=== PATIENT | male | born 1985 | race Caucasian/White ===

== ENCOUNTER → 2020-05-06 08:16 | Outpatient (BNVA) | payer BC, SELFPAY | PROVIDERS: Visit Provider Nurse Practitioner Family | DX: Z11.59 Encounter for screening for other viral diseases (principal) | CPT/HCPCS: 87635 ==

== ENCOUNTER 2022-01-19 09:15 | Emergency (ER) | payer SELFPAY ==
[2022-01-19 09:43] VITALS: BP 150/86; PULSE 69; RESP 26; TEMP 36.6; O2SAT 97; BMI 25.0
--- NOTE | 2022-01-19 09:51 | ED_ITS ---
HPI - Arrhythmia/Palpitations General: Chief Complaint: Arrhythmia/Palpitations Stated Complaint: high HR, high BP Time Seen by Provider: 01/19/22 09:26 Source: patient Mode of arrival: ambulatory Limitations: no limitations History of Present Illness: 36-year-old male presents emergency room complaining of rapid heart beat as well as elevated blood pressure tremors and near syncopal episode this morning while he was in the shower. Reports that when he looks down for times and looks up he gets severe dizziness. No recent head trauma no history of coronary disease no history of arrhythmias is not any prescription or [id number] medications. Denies shortness of breath fever sweats or chills. He states he has had the symptoms for the last couple of weeks. MD complaint: rapid heart beat Onset (ago): week(s) Duration: intermittent Severity: moderate Associated symptoms: Reports nausea; Deny anxiety, cough, diaphoresis, muscle cramps, paresthesias, pre-syncope, sense of impending doom, short of breath, syncope or vomiting Review of Systems Const: Reports: body aches, change in appetite, fatigue and malaise; Denies: fever(s), chills or diaphoresis ENMT: Denies: throat pain, ear or mastoid pain, nasal discharge or nasal congestion Card: Denies: chest pain, syncope or pre-syncope Resp: Denies: dyspnea, productive cough or non-productive cough GI: Reports: nausea; Denies: abdominal pain or vomiting : Denies: flank pain, difficulty urinating, dysuria, urinary frequency or urinary urgency Musc: Denies: neck pain, back pain or muscle cramps Skin/Breast: Denies: rash or pruritus Neuro: Denies: headache(s) Psych: Denies: anxiety PFS ED PFSH: Medical History (Updated 01/19/22 @ 12:04 by Vasyl Snowden DO) No significant past medical history Surgical History (Updated 01/19/22 @ 10:58 by Vasyl Snowden DO) No pertinent past surgical history Social History (Updated 01/19/22 @ 10:58 by Vasyl Snowden DO) Smoking and tobacco status: never smoked Alcohol intake: never Physical Exam Const: COMMON NORMALS: no acute distress GENERAL APPEARANCE: cooperative and comfortable ORIENTATION/CONSCIOUSNESS: Yes awake, Yes oriented to person, Yes oriented to place and Yes oriented to time HENMT: COMMON NORMALS: normocephalic, atraumatic, hearing grossly normal bilaterally, external ears normal, EAC's normal, TM's normal bilaterally and Normal nasal mucous membranes and turbinates present HEAD & SCALP: normocephalic and atraumatic NOSE: Normal nasal mucous membranes and turbinates present EXTERNAL EAR: Yes external ears normal EXTERNAL AUDITORY CANAL: EAC's normal TYMPANIC MEMBRANE: TM's normal bilaterally Eye: COMMON NORMALS: Equal, round and reactive pupils present, EOMs intact bilaterally, conjunctivae normal and no scleral icterus CONJUNCTIVA: Yes conjunctivae normal PUPIL: Yes Equal, round and reactive pupils present Neck/C-Spine: COMMON NORMALS: no JVD Lymph: LYMPHATIC: no lymphadenopathy noted and no lymphedema noted Resp: COMMON NORMALS: normal respiratory effort, No retractions, No use of accessory muscles and clear to auscultation bilaterally AUSCULTATION: clear to auscultation bilaterally Cardio: COMMON NORMALS: no JVD, regular rate, regular rhythm and No murmurs present (Cardio) RATE: regular rate RHYTHM: regular rhythm GI: COMMON NORMALS: Soft to palpation and No hepatosplenomegaly present AUSCULTATION: Yes normoactive bowel sounds PALPATION: Yes Soft to palpation, No Tenderness to palpation present (GI), No Guarding due to palpation present (GI) and Yes No hepatosplenomegaly present Extremity: COMMON NORMALS: normal to inspection, capillary refill normal, no clubbing, cyanosis or edema, no calf tenderness and no pedal edema Neuro: SENSORIUM/ORIENTATION: Yes oriented to person, Yes oriented to place and Yes oriented to time Skin: COMMON NORMALS: no rashes or lesions noted GENERAL SKIN EXAM: no rashes or lesions noted Course Vital Signs: Vital signs: Vital Signs Temperature 97.8 F 01/19/22 09:43 Pulse Rate 78 01/19/22 13:51 Respiratory Rate 20 H 01/19/22 13:51 Blood Pressure 140/96 01/19/22 13:51 Pulse Oximetry 96 01/19/22 13:51 MDM - Arrhythmia/Palpitations Medical Decision Making No significant finding during evaluation in ER. Patient has remained in normal sinus rhythm the entire time with no arrhythmias noted any significant PVCs or PACs were noted. We will discharge patient home set him up for a 48-hour Holter follow-up with primary care if worsening symptoms return. Medical Records I reviewed the patient's medical records. Lab Data I reviewed the patient's lab results. : 01/19/22 09:41 01/19/22 09:41 Radiology Impressions Chest X-Ray 01/19/22 10:50 Impression: Negative chest. Head CT 01/19/22 10:50 Impression: 1. Negative for acute intracranial hemorrhage. 2. Mild dilatation of the ventricular system without shift. Laboratory Results WBC 6.2 10^3/uL (4.0-10.0) 01/19/22 09:41 RBC 5.32 10^6/uL (4.1-5.3) H 01/19/22 09:41 Hgb 17.2 g/dL (11.7-16.6) H 01/19/22 09:41 Hct 49.4 % (42.0-52.0) 01/19/22 09:41 MCV 92.9 fl (80-94) 01/19/22 09:41 MCH 32.3 pg (28.0-34.0) 01/19/22 09:41 MCHC 34.8 g/dL (30.0-36.0) 01/19/22 09:41 RDW 11.7 % (12.1-15.1) L 01/19/22 09:41 Plt Count 188 10^3/cmm (130-400) 01/19/22 09:41 MPV 9.8 fL (7.4-10.4) 01/19/22 09:41 Neut % (Auto) 63.7 % 01/19/22 09:41 Lymph % (Auto) 18.0 % 01/19/22 09:41 [place] % (Auto) 16.0 % 01/19/22 09:41 Eos % (Auto) 1.5 % 01/19/22 09:41 Baso % (Auto) 0.5 % 01/19/22 09:41 Neut # (Auto) 3.94 10^3/uL (1.8-7.7) 01/19/22 09:41 Lymph # (Auto) 1.1 10^3/uL (0.8-4.8) 01/19/22 09:41 [place] # (Auto) 1.0 10^3/uL (0.2-0.9) H 01/19/22 09:41 Eos # (Auto) 0.1 10^3/uL (0.0-0.8) 01/19/22 09:41 Baso # (Auto) 0.0 10^3/uL (0.0-0.1) 01/19/22 09:41 Nucleated RBC % (auto) 0 % 01/19/22 09:41 Nucleated RBCs # 0.0 /100WBC 01/19/22 09:41 Sodium 139 mmol/L (136-145) 01/19/22 09:41 Potassium 3.9 mmol/L (3.5-5.1) 01/19/22 09:41 Chloride 98 mmol/L (98-107) 01/19/22 09:41 Carbon Dioxide 26 mmol/L (22-29) 01/19/22 09:41 Anion Gap 18.9 (5-19) 01/19/22 09:41 BUN 4 mg/dL (6-20) L 01/19/22 09:41 Creatinine 0.7 mg/dL (0.7-1.2) 01/19/22 09:41 GFR Calculation 129.1 mL/min (90-130) 01/19/22 09:41 Glucose 131 mg/dL (65-115) H 01/19/22 09:41 Calculated Osmolality 287 mOsm/kg (285-295) 01/19/22 09:41 Calcium 9.9 mg/dL (8.5-10.5) 01/19/22 09:41 Total Bilirubin 0.4 mg/dL (0.15-1.2) 01/19/22 09:41 AST 79 U/L (0-40) H 01/19/22 09:41 ALT 70 U/L (0-41) H 01/19/22 09:41 Alkaline Phosphatase 99 IU/L (40-130) 01/19/22 09:41 Creatine Kinase 416 U/L (39-308) H* 01/19/22 09:41 Troponin T Baseline 6 ng/L (0-15) 01/19/22 09:41 Troponin T 120 Minute 6.00 ng/L (0-15) 01/19/22 11:53 Delta Troponin T 0 ABS# (0-10) 01/19/22 11:53 Total Protein 7.9 g/dL (6.6-8.7) 01/19/22 09:41 Albumin 5.0 g/dL (3.5-5.2) 01/19/22 09:41 Globulin 2.9 g/dL (1.3-4.6) 01/19/22 09:41 TSH 1.80 uIU/mL (0.27-4.20) 01/19/22 09:41 Urine Color Yellow (Yellow) 01/19/22 11:15 Urine Appearance Clear (CLEAR) 01/19/22 11:15 Urine pH 7 (5-7) 01/19/22 11:15 Ur Specific [place] 1.010 (1.005-1.030) 01/19/22 11:15 Urine Protein Neg (Negative) 01/19/22 11:15 Urine Glucose (UA) Norm (Normal) 01/19/22 11:15 Urine Ketones 1+ (Negative) H 01/19/22 11:15 Urine Blood Neg (Negative) 01/19/22 11:15 Urine Nitrate Negative (Negative) 01/19/22 11:15 Urine Bilirubin Neg (Negative) 01/19/22 11:15 Urine Urobilinogen Norm mg/dL (Negative) 01/19/22 11:15 Ur Leukocyte Esterase Negative (Negative) 01/19/22 11:15 Urine Opiates Screen Negative ng/mL (Negative) 01/19/22 11:15 Ur Barbiturates Screen Negative ng/mL (Negative) 01/19/22 11:15 Ur Phencyclidine Scrn Negative ng/mL (Negative) 01/19/22 11:15 Ur Amphetamines Screen Negative ng/mL (Negative) 01/19/22 11:15 U Benzodiazepines Scrn Negative ng/mL (Negative) 01/19/22 11:15 Urine Cocaine Screen Negative ng/mL (Negative) 01/19/22 11:15 U Marijuana (THC) Screen Negative ng/mL (Negative) 01/19/22 11:15 Discharge Plan Discharge Patient Disposition: Home Clinical Impression: Palpitations, Hypertension, Positional vertigo Condition: Stable Prescriptions: New amlodipine 2.5 mg tablet 2.5 mg PO DAILY Qty: 30 0RF meclizine 25 mg tablet 25 mg PO QID PRN (Reason: dizziness) Qty: 20 0RF No Action multivitamin Tablet 1 tab PO DAILY 0RF zinc 50 mg Tablet 50 mg PO DAILY 0RF potassium gluconate 595 mg (99 mg) Tablet 595 mg PO QAM 0RF Vitamin B-12 1 tab PO .THREE TIMES A WEEK 0RF Discharge Orders: Discharge ED (Routine); Ordered 01/19/22 Ordered By: Vasyl Snowden Discharge Diet: Usual diet Discharge Activity: Increase activity as tolerated Patient Instructions: Opioid Safety Activity Restrictions/Additional Instructions: Case management will make arrangements for you to have a 48-hour Holter monitor and follow-up with your primary care doctor after it is completed. 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
[2022-01-19 10:04] LABS: Basophils % 0.5 %; Eosinophils # 0.1 10^3/uL (0.0-0.8); Eosinophils % 1.5 %; Hematocrit 49.4 % (42.0-52.0); Hemoglobin 17.2 g/dL (11.7-16.6); Lymphocytes # 1.1 10^3/uL (0.8-4.8); Mean Corpuscular HGB Conc 34.8 g/dL (30.0-36.0); Mean Corpuscular Hemoglobin 32.3 pg (28.0-34.0); Mean Corpuscular Volume 92.9 fl (80-94); Mean Platelet Volume 9.8 fL (7.4-10.4); Neutrophils # 3.94 10^3/uL (1.8-7.7); Neutrophils % 63.7 %; Nucleated Red Blood Cells % 0 %; Platelet Count 188 10^3/cmm (130-400); Red Blood Count 5.32 10^6/uL (4.1-5.3); Red Cell Distribution Width 11.7 % (12.1-15.1); White Blood Count 6.2 10^3/uL (4.0-10.0)
--- NOTE | 2022-01-19 10:18 | ECG_ITS ---
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 Measurements Intervals [place] Rate: 78 P: 55 AL: 112 QRS: 22 QRSD: 92 T: 42 QT: 423 QTc: 485 Interpretive Statements SINUS RHYTHM WITH SHORT AL INTERVAL NONSPECIFIC T-WAVE ABNORMALITY No previous ECG available for comparison Electronically Signed On 01-19-2022 19:42:16 CDT by Coco Alston M.D. [id number]
[2022-01-19 10:24] VITALS: BP 150/86; PULSE 66; RESP 19; O2SAT 96
[2022-01-19 10:45] LABS: Troponin(5th) Baseline 6 ng/L (0-15)
[2022-01-19 10:48] LABS: Alanine Aminotransferase 70 U/L (0-41); Alkaline Phosphatase 99 IU/L (40-130); Anion Gap 18.9 (5-19); Aspartate Amino Transferase 79 U/L (0-40); Blood Urea Nitrogen 4 mg/dL (6-20); Calcium 9.9 mg/dL (8.5-10.5); Carbon Dioxide 26 mmol/L (22-29); Chloride 98 mmol/L (98-107); Globulin 2.9 g/dL (1.3-4.6); Glomerular Filtration Rate 129.1 mL/min (90-130); Glucose 131 mg/dL (65-115); Osmolality Calculated 287 mOsm/kg (285-295); Potassium 3.9 mmol/L (3.5-5.1); Sodium 139 mmol/L (136-145); Total Bilirubin 0.4 mg/dL (0.15-1.2); Total Protein 7.9 g/dL (6.6-8.7)
--- NOTE | 2022-01-19 10:50 | XR_ITS ---
WS: [id number] Portable AP upright chest, 01/19/2022 Clinical Data: dyspnea/cough Comparison: None. Findings: No nodules, masses or effusions are seen. The heart is normal. The pulmonary vascularity is not increased. No pneumonia or pneumothorax is seen. XR/XR chest 1V portable [id number] Impression: Negative chest.
--- NOTE | 2022-01-19 10:50 | CT_ITS ---
WS: [id number] CT scan of the head, 01/19/2022 Clinical Data: dizziness, near syncope Comparison: None. DLP: 998.[address] scans at [facility] use at least one of these dose optimization techniques: automated e xposure control; mA and/or kV adjustment per patient size (includes targeted exams where dose is matc hed to clinical indication); or iterative reconstruction. Findings: The ventricular system is minimally dilated without shift. No recent infarct or hemorrhage is seen. T here are no abnormal intracerebral masses. The cerebellum and brainstem are not remarkable. Bony windows of the skull and skull base show no fractures or erosions. The mastoid air cells, production intern al auditory canals, sella turcica, intraorbital contents, and paranasal sinuses are unremarkable. CT/CT head wo con* [id number] Impression: 1. Negative for acute intracranial hemorrhage. 2. Mild dilatation of the ventricular system without shift.
[2022-01-19 10:51] LABS: Creatine Phosphokinase 416 U/L (39-308)
[2022-01-19 11:13] VITALS: BP 156/100; PULSE 79; RESP 19; O2SAT 94
[2022-01-19 11:22] LABS: Add Urine Microscopic? NO; Charge for UA Resulting for Rev
[2022-01-19 11:26] LABS: Urine Appearance Clear (CLEAR); Urine Color Yellow (Yellow)
[2022-01-19 11:27] LABS: Bilirubin Urine Neg (Negative); Blood Urine Neg (Negative); Glucose Urine UA Norm (Normal); Ketones Urine 1+ (Negative); Leukocyte Esterase Urine Negative (Negative); Nitrate Urine Negative (Negative); Protein Urine Neg (Negative); Urobilinogen Urine Norm (Negative); pH Urine 7 (5-7)
[2022-01-19 11:35] LABS: Amphetamines Screen Urine Negative (Negative); Barbiturates Screen Urine Negative (Negative); Benzodiazepines Screen Urine Negative (Negative); Cocaine Screen Urine Negative (Negative); Opiate Screen Urine Negative (Negative); PCP Screen Urine Negative (Negative); THC Screen Urine Negative (Negative)
[2022-01-19] MEDS: sodium chloride 0.9% 1,000 ML 999 ML IV ×2 (12:04→12:44)
[2022-01-19 12:05] VITALS: BP 151/95; PULSE 77; RESP 19; O2SAT 95
--- NOTE | 2022-01-19 12:17 | PC.NURSE ---
Patient fluids infusing, will discharge after fluids are complete.
--- NOTE | 2022-01-19 12:18 | ECG_ITS ---
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 Measurements Intervals [place] Rate: 68 P: 63 VT: 121 QRS: 34 QRSD: 93 T: 68 QT: 465 QTc: 495 Interpretive Statements SINUS RHYTHM PROLONGED QT INTERVAL Compared to ECG 01/19/2022 10:25:31 Prolonged QT interval now present Short VT interval no longer present T-wave abnormality no longer present Electronically Signed On 01-19-2022 19:48:37 CDT by Coco Alston M.D. [id number]
[2022-01-19 12:28] LABS: Troponin 5 2HR Delta 0 ABS# (0-10)
[2022-01-19 13:51] VITALS: BP 140/96; PULSE 78; RESP 20; O2SAT 96
--- NOTE | 2022-01-20 16:28 | DCPLANNER ---
Addendum entered by Linda Burr 02/06/22 06:39: Patient had a follow up appointment scheduled for 01.31.22 with Linda Love to establish care - patient did attend appointment. Addendum entered by Linda Burr 01/26/22 15:03: Patient had a follow up appointment scheduled for 01.24.22 for a halter monitor - patient did attend appointment. Patient has a follow up appointment scheduled for Monday January 31, 2022 at 10:30 with Linda Love. Clinic will call patient with appointment information. Original Note: leadership development manager had message to schedule an out patient halter monitor for patient and to speak with patient about getting established with a primary care physician. leadership development manager faxed signed order to heart care, who will call patient with appointment information. After the halter monitor is placed, case reviewer will schedule a follow up appointment for patient with DESIZING MACHINE OPERATOR HEAD END, Linda Love.
== END 2022-01-19 13:53 | disposition home or self-care (01) ==
PROVIDERS: Emergency Provider Family Medicine
DX: R00.2 Palpitations (principal); I10 Essential (primary) hypertension; H81.10 Benign paroxysmal vertigo, unspecified ear
CPT/HCPCS: 70450; 71045; 80053; 80306; 81003; 82550; 84443; 84484; 85025; 93005; 96360; 99284; J7030

== ENCOUNTER 2023-03-05 10:38 | Emergency (ER) | payer SELFPAY ==
[2023-03-05 10:52] VITALS: BP 158/91; PULSE 91; RESP 18; TEMP 36.6; O2SAT 96
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
[2023-03-05] MEDS: ceFAZolin 1,000 MG in sodium chloride 0.9% (plus) 50 ML 100 MG IV (11:10)
[2023-03-05] MEDS: ondansetron 2 mg/ML SDV 2 mL 4 MG IVP (11:12)
[2023-03-05] MEDS: ketorolac 30 mg/mL INJ IVP (11:12)
[2023-03-05] MEDS: tetanus-dipt-pertussis 0.5 mL SDV IM (11:13)
[2023-03-05 11:15] VITALS: RESP 18; O2SAT 97
[2023-03-05] MEDS: morphine 4 mg/mL SDV 1 mL IVP ×2 (11:15→12:47)
[2023-03-05] MEDS: sodium chloride 0.9% 1,000 ML 999 ML IV (11:27)
[2023-03-05 11:30] VITALS: BP 158/91; PULSE 75; RESP 16; O2SAT 95
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
[2023-03-05] MEDS: iohexol 350 mg/mL 500 mL Btl (per mL) IV (12:27)
[2023-03-05 12:41] VITALS: BP 158/91; PULSE 68; RESP 18; O2SAT 98
[2023-03-05 12:47] VITALS: RESP 18; O2SAT 99
[2023-03-05 13:22] LABS: INR 0.94 (0.8-1.2)
--- NOTE | 2023-03-05 13:32 | ECG_ITS ---
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 Measurements Intervals [place] Rate: 72 P: 10 AR: 112 QRS: 8 QRSD: 97 T: 51 QT: 360 QTc: 394 Interpretive Statements SINUS RHYTHM WITH SHORT AR INTERVAL NONSPECIFIC T-WAVE ABNORMALITY Compared to ECG 01/19/2022 12:14:16 Short AR interval now present T-wave abnormality now present Prolonged QT interval no longer present Electronically Signed On 03-05-2023 21:02:21 CDT by Coco Alston M.D. [id number]
[2023-03-05] MEDS: fentaNYL 50 mcg/mL INJ 2mL IVP (13:39)
[2023-03-05] MEDS: sodium chloride 0.9% 1,000 ML 250 ML IV (13:41)
[2023-03-05 13:55] LABS: Add Urine Microscopic? NO; Charge for UA Resulting for Rev
[2023-03-05 14:10] LABS: Urine Appearance Clear (CLEAR); Urine Color Yellow (Yellow); pH Urine 6 (5-7)
[2023-03-05 14:11] LABS: Bilirubin Urine Neg (Negative); Blood Urine Neg (Negative); Glucose Urine UA Norm (Normal); Ketones Urine 2+ (Negative); Leukocyte Esterase Urine Negative (Negative); Nitrate Urine Negative (Negative); Protein Urine Neg (Negative); Urobilinogen Urine 1 mg/dL (Negative)
== END 2023-03-05 14:19 | disposition short-term general hospital (02) ==
PROVIDERS: Emergency Provider Emergency Medicine
DX: S32.511A Fracture of superior rim of right pubis, initial encounter for closed fracture (principal); S32.591A Other specified fracture of right pubis, initial encounter for closed fracture; S32.10XA Unspecified fracture of sacrum, initial encounter for closed fracture; S32.059A Unspecified fracture of fifth lumbar vertebra, initial encounter for closed fracture; S82.145A Nondisplaced bicondylar fracture of left tibia, initial encounter for closed fracture; S72.432A Displaced fracture of medial condyle of left femur, initial encounter for closed fracture; S82.52XA Displaced fracture of medial malleolus of left tibia, initial encounter for closed fracture; F17.220 Nicotine dependence, chewing tobacco, uncomplicated; V09.09XA Pedestrian injured in nontraffic accident involving other motor vehicles, initial encounter; Z23 Encounter for immunization
CPT/HCPCS: 73502; 73562; 73610; 73630; 74177; 81003; 85610; 90471; 90715; 93005; 96374; 96375; 96376; 99285; J0690; J1885; J2270; J2405; J3010; J7030; Q9967